=== PATIENT | female | born 1970 | race Hispanic/Latino ===

== ENCOUNTER 2023-01-01 15:28 | Emergency (ER) | payer OTHER ==
[~2023-01-01] VITALS: Ht 154.9 cm; Wt 68.5 kg
[2023-01-01] MEDS ORDERED: SULF1TAB42 PO (16:39)
[2023-01-01] MEDS ORDERED: CEPH500B PO (16:39)
[2023-01-01 17:17] VITALS: BP 120/68; PULSE 70; RESP 16; O2SAT 98
== END 2023-01-01 17:24 | disposition home or self-care (01) ==
LOC: EDH 15:28
DX: T63.301A Toxic effect of unspecified spider venom, accidental (unintentional), initial encounter (principal); L03.115 Cellulitis of right lower limb; E11.9 Type 2 diabetes mellitus without complications; E78.00 Pure hypercholesterolemia, unspecified; I10 Essential (primary) hypertension; Z88.1 Allergy status to other antibiotic agents; Z95.5 Presence of coronary angioplasty implant and graft; Y92.89 Other specified places as the place of occurrence of the external cause

== ENCOUNTER 2024-06-14 10:18 | Emergency (ER) | payer BC, OTHER ==
[~2024-06-14] VITALS: Ht 154.9 cm; Wt 81.6 kg
[~2024-06-14 10:18] MED LIST: CEPH500B PO; SULF1TAB42 PO
--- NOTE | 2024-06-14 10:33 | NUR ---
PT JUST NOW PLACED IN ED BED 9
--- NOTE | 2024-06-14 10:44 | NUR ---
PT JUST COMPLETED A FEW DAYS AGO HER 5 DAY ANTIBIOTIC REGIMEN FOR TREATMENT FOR A UTI
--- NOTE | 2024-06-14 10:55 | EKG ---
[facility] Test Date: 2024-06-14 Test Time: 10:48:33 Pat Name: ZOILA GARCIA Department: ED Room: Gender: F Senior Science Consultant: [id number] : 1970 Requested By: PUJA LEONARD Order Number: [id number] Reading MD: Michel Watson Measurements Intervals [place] Rate: 99 P: 37 VT: 158 QRS: -25 QRSD: 87 T: 0 QT: 342 QTc: 440 Interpretive Statements Sinus rhythm Inferior infarct, old Possible anterior infarct LEFT VENTRICULAR HYPERTROPHY No previous ECG available for comparison Electronically Signed On 06-15-2024 19:17:13 MANUFACTURING MILLWRIGHT by Michel Watson Please click the below link to view image of tracing.
[2024-06-14] MEDS ORDERED: ketOROlac 30MG VIAL (30MG/ML) IM ONE (11:00)
[2024-06-14] MEDS ORDERED: ketOROlac 15MG/ML VIAL (15MG/ML) IM ONE (11:00)
[2024-06-14] MEDS ORDERED: ketOROlac 30MG VIAL (30MG/ML) IVP ONE (11:00)
--- NOTE | 2024-06-14 11:00 | NUR ---
PENDING GFR, IV SITE, & CONSENT FOR CT EXAM.
[2024-06-14] MEDS: ondanSETRON 4MG INJ IVP ONE (11:01)
[2024-06-14] MEDS: 0.9%NACL 1000ML 1,000 ML IV SCH (11:01)
[2024-06-14] MEDS: ketOROlac 15MG/ML VIAL (15MG/ML) IV ONE ×2 (11:01→17:42)
--- NOTE | 2024-06-14 11:02 | ERN ---
ED Note History of Present Illness Stated Complaint: CHEST PAINS, ABDOMINAL PAIN Chief Complaint: Groin Pain Time Seen by MD: 10:46 Allergies: Coded Allergies: levofloxacin (Unverified Allergy, Unknown, 01/01/23) Home Meds Active Scripts Cephalexin Monohydrate (Keflex) 500 Mg Cap, 500 MG PO QID for 7 Days, #28 CAP Prov:ARMIDA SYLVESTER V SHIRA 01/01/23 Sulfamethoxazole/Trimethoprim (Bactrim Ds Tablet) 1 Each Tablet, 1 TAB PO BID for 7 Days, #14 TAB 0 Refills Prov:ARMIDA SYLVESTER V BRIQUETTING MACHINE OPERATOR 01/01/23 Past Medical History Dictation Patient comes in with complaint of right lower quadrant burning and pain as well as dysuria. Pain seems worse with urination and defecation. This has been ongoing for two weeks. Two weeks ago she went to [facility] and had evaluation including CT scan. She was told she had a urinary tract infection and finished course of antibiotics. However she states that pain never went away nor resolved. Comes in for further evaluation. She also has nausea. She is not someone antibiotic she was on. Patient is on Plavix. She has known CAD with four stents. Patient states after evaluating this started as she did look through her paperwork and then she actually does appear to have been admitted for an NSTEMI along with UTI and was in the hospital for two days. No further intervention was done besides medical management. Patient does have history of CAD with stents that was put in September of 2023. No intervention was performed besides medication management. pt on asa and plavix chronically and reports compliance Past Medical History: CAD, Diabetes-Type II, High Cholesterol, Heart Disease, Hypertension, Other Additional Past Medical Hx: CARDIAC STENTS X4 SEPTEMBER 2023 DR MATIAS Surgical History: Hysterectomy, Cholecystectomy, Other Surgical History Other: HERNIA REPAIR Review of System Dictation Ten systems reviewed and negative except as noted in HPI Initial Vital Sign VS Vital Signs Date Time Temp Pulse Resp B/P (MAP) Pulse Ox O2 Delivery O2 Flow Rate FiO2 06/14/24 10:22 102.0 96 20 118/77 96 Room Air 0 06/14/24 10:28 21 Physical Exam Dictation GEN: non toxic, NAD HEENT: atrumatic, PERRL, EOMI, conjunctivae normal NECK: Soft supple nontender Heart RRR, no murmurs Chest: No deformity Lungs: Lungs clear to auscultation Ab: Patient reports a lot of discomfort even with light touch to the right lower quadrant. External exam unremarkable. No dermatomal rash in the back or in the right lower abdomen. Tender to palpation in the lower regions of her abdomen. Back: No midline step-offs. No gross deformity. No CVA tenderness : m/s: Moving all four extremities. No gross deformity Neuro: CN 2-12 intact. Moving all four extremities. Psych: Cooperative Results (Laboratory/Radiology) Laboratory/Radiology Laboratory Tests Test 06/14/24 10:42 06/14/24 11:01 06/14/24 12:21 Urine Color YELLOW (YELLOW) Urine Appearance HAZY (CLEAR) Urine pH 6.0 (5.0-8.0) Urine Specific [place] 1.020 (1.001-1.031) Urine Protein 20 mg/dL (NEGATIVE) H Urine Glucose (UA) NEGATIVE mg/dL (NEGATIVE) Urine Ketones 5 mg/dL (NEGATIVE) H Urine Occult Blood NEGATIVE (NEGATIVE) Urine Nitrate NEGATIVE (NEGATIVE) Urine Bilirubin NEGATIVE mg/dL (NEGATIVE) Urine Urobilinogen 0.2 mg/dL (0.2-1.0) Urine Leukocyte Esterase 25 Hakeem/uL (NEGATIVE) H Urine RBC 0-1 /HPF (0-1) Urine WBC 2-5 /HPF (0-1) H Urine Squamous Epithelial Cells FEW /HPF (0-2) Urine Bacteria RARE /HPF (None Seen) White Blood Count 14.9 K/uL (4.8-10.8) H Red Blood Count 4.38 MIL/uL (4.00-5.50) Hemoglobin 11.8 g/dL (12.0-16.0) L Hematocrit 36.3 % (36-48) Mean Corpuscular Volume 82.9 fL (79-99) Mean Corpuscular Hemoglobin 26.9 pg (27.0-33.0) L Mean Corpuscular Hemoglobin Concent 32.5 g/dL (32.0-36.0) Red Cell Distribution Width 13.5 % (11.0-15.5) Platelet Count 424 K/uL (130-400) H Mean Platelet Volume 10.2 fL (7.5-10.5) Immature Granulocyte % (Auto) 0.6 % (0-1) Neutrophils (%) (Auto) 82.2 % (40.0-77.0) H Lymphocytes (%) (Auto) 7.4 % (21.0-51.0) L Monocytes (%) (Auto) 9.4 % (3.0-13.0) Eosinophils (%) (Auto) 0.1 % (0.0-8.0) Basophils (%) (Auto) 0.3 % (0.0-5.0) Neutrophils # (Auto) 12.3 K/uL (1.8-7.7) H Lymphocytes # (Auto) 1.1 K/uL (1.0-4.8) Monocytes # (Auto) 1.4 K/uL (0.1-1.0) H Eosinophils # (Auto) 0.02 K/uL (0.00-0.70) Basophils # (Auto) 0.04 K/uL (0.00-0.20) Absolute Immature Granulocyte (auto 0.09 K/uL (0-1) Nucleated Red Blood Cells 0.0 % (0.0-0.19) White Cell Morphology Comment See comments Sodium Level 135 mmol/L (136-145) L Potassium Level 3.8 mmol/L (3.5-5.1) Chloride Level 99 mmol/L (101-111) L Carbon Dioxide Level 23 mmol/L (21-32) Blood Urea Nitrogen 11 mg/dL (7-18) Creatinine 0.8 mg/dL (0.5-1.0) Glomerular Filtration Rate Calc 87 mL/min (>90) Random Glucose 170 mg/dL (70-105) H Total Calcium 9.3 mg/dL (8.5-10.1) Total Bilirubin 0.5 mg/dL (0.2-1.0) Aspartate Amino Transf (AST/SGOT) 24 U/L (10-37) Alanine Aminotransferase (ALT/SGPT) 31 U/L (12-78) Alkaline Phosphatase 96 U/L (50-136) Troponin I High Sensitivity 68 ng/L (4-50) *H 61 ng/L (4-50) *H Total Protein 8.8 g/dL (6.0-8.3) H Albumin 2.8 g/dL (3.5-5.0) L Lipase 35 U/L (16-77) PATIENT: ZOILA GARCIA MR#: [id number] : 1970 SEX: F AGE: 54 LOCATION: [facility] ORDER 37 STATUS: REG ER REPORT#: [id number] SERVICE [id number] REASON: ab pain ORDERING PHYSICIAN: PUJA LEONARD MD PROCEDURE: ABD PEL W - CT ABDOMEN/PELVIS W/CONTRAST CT ABDOMEN/PELVIS W/CONTRAST REASON: ab pain COMPARISON: None. TECHNIQUE: Images are obtained from lung bases to symphysis pubis following IV contrast, 75 cc Omnipaque 350. FINDINGS: Lung bases are clear. There are no focal liver lesions. There are normal-appearing kidneys.. Spleen and pancreas appear unremarkable. The gallbladder appears normal as well. There is moderate sigmoid diverticulosis. Distal sigmoid is inflamed and thick-walled consistent with diverticulitis. There is a complex fluid collection adjacent to the sigmoid consistent with abscess, this contains air and fluid, measuring 4.3 x 6.2 cm axial dimension and 5.1 cm superior to inferior. There are several additional smaller fluid collections just superior to this, the largest is 2.2 cm. Bowel loops appear otherwise unremarkable. This includes normal appearance of the appendix There is no evidence of free fluid or intraperitoneal air. Aorta and retroperitoneum appear normal. Uterus is not identified and may be absent. The anterior abdominal wall is intact. Osseous structures appear unremarkable. IMPRESSION: 1. There is diverticulosis of the distal sigmoid, there is marked wall thickening and inflammation consistent with diverticulitis. 2. There are multiple abscesses the pelvis, largest is 6.2 cm, adjacent to the distal sigmoid, consistent with a diverticular abscess, there are several smaller focal fluid collections as well. 3. Otherwise unremarkable exam, no evidence of obstruction, no other focal abnormality. CT was performed with one or more following dose reduction techniques: automated exposure control, adjustment of the mA and kv according to patient's size, or use of a iterative reconstruction technique. DICTATED BY: VALDEMAR GU MD DATE: 06/14/246 ELECTRONICALLY SIGNED BY: VALDEMAR GU MD DATE: 06/14/24 1229 ED Course ED Course Orders Procedure Category Date Status Time Urinalysis Profile LAB 06/14/24 Complete 10:44 Cbc With Differential LAB 06/14/24 Complete 10:44 12 Lead Ekg Tracing- EKG 06/14/24 Complete Technical 10:44 Ketorolac PHA 06/14/24 Complete Tromethamine 30mg/Ml 11:00 Troponin I High LAB 06/14/24 Complete Sensitivity 10:48 Ondansetron 4mg Inj PHA 06/14/24 Complete (Zofran 4mg Inj) 11:00 0.9%Nacl 1000ml (Ns PHA 06/14/24 Complete 1000ml) 11:00 Comprehensive LAB 06/14/24 Complete Metabolic Panel 10:52 Lipase LAB 06/14/24 Complete 10:52 12 Lead Ekg Tracing- EKG 06/14/24 Complete Technical 10:52 Ketorolac PHA 06/14/24 Complete Tromethamine 15mg/Ml 11:00 Troponin I High LAB 06/14/24 Complete Sensitivity 12:01 Ct Abdomen/Pelvis CT 06/14/24 Resulted W/Contrast 11:37 Iohexol (Omnipaque) PHA 06/14/24 Complete 11:42 12 Lead Ekg Tracing- EKG 06/14/24 Logged Technical 12:16 Zosyn 3.375gm+Ns 50ml PHA 06/14/24 Complete (Zosyn 3.375gm+Ns 13:30 Ketorolac PHA 06/14/24 Complete Tromethamine 15mg/Ml 18:00 Morphine 2mg Syg PHA 06/14/24 Complete (Morphine 2mg Syg) 18:30 Current Medications Medications (Trade) Dose Ordered Sig/Crystal Route PRN Reason Start Time Stop Time Status Last Admin Dose Admin Iohexol (Omnipaque) 75 ml STK-MED ONCE IV 06/14/24 11:42 06/14/24 11:42 DC Ketorolac Tromethamine (toRADol) 15 mg ONCE ONCE IM 06/14/24 11:00 06/14/24 10:58 DC Ketorolac Tromethamine (toRADol) 15 mg ONCE ONCE IV 06/14/24 11:00 06/14/24 11:01 DC 06/14/24 11:01 Ketorolac Tromethamine (toRADol) 15 mg ONCE ONCE IV 06/14/24 18:00 06/14/24 18:01 DC 06/14/24 17:42 Ketorolac Tromethamine (toRADol) 30 mg ONCE ONCE IM 06/14/24 11:00 06/14/24 10:55 DC Ketorolac Tromethamine (toRADol) 30 mg ONCE ONCE IVP 06/14/24 11:00 06/14/24 10:58 DC Morphine Sulfate (morPHINE 2MG SYG) 2 mg ONCE ONCE IVP 06/14/24 18:30 06/14/24 18:31 DC 06/14/24 18:16 Ondansetron HCl (zoFRAN 4MG INJ) 4 mg ONCE ONCE IVP 06/14/24 11:00 06/14/24 11:01 DC 06/14/24 11:01 Piperacillin Sod/ Tazobactam Sod (Zosyn 3.375gm+NS 50ml) 3.375 gm ONCE ONCE IV 06/14/24 13:30 06/14/24 13:31 DC 06/14/24 13:13 Sodium Chloride 1,000 ml @ 999 mls/hr Q1H1M IV 06/14/24 11:00 06/14/24 14:08 DC 06/14/24 11:01 Vital Signs Date Time Temp Pulse Resp B/P (MAP) Pulse Ox O2 Delivery O2 Flow Rate FiO2 06/14/24 18:14 99.9 95 20 146/95 97 Room Air* 0 06/14/24 16:24 98.4 82 20 115/72 97 Room Air* 0 06/14/24 15:46 82 24 131/81 97 Room Air* 0 06/14/24 14:14 99.3 87 25 134/84 98 Room Air* 0 06/14/24 13:21 99.7 90 28 137/91 98 Room Air* 0 06/14/24 10:28 102.0 96 20 118/77 96 Room Air* 0 06/14/24 10:22 102.0 96 20 118/77 96 Room Air 0 EKG Sinus rhythm 99 SC 158 QRS of 87 QTC of 440 left axis deviation QRS complexes are narrow. Poor R-wave progression besides prominent R-wave in V2. Q-waves V1 V3 V4. Q-waves also in three and AVF. Nonspecific STT wave flattening. Interpretation abnormal EKG #2 1221 2nd EKG was performed as patient did start complaining of some chest discomfort. Sinus rhythm 91 SC 158 QRS of 96 QTC of thre 464 left axis deviation QRS complexes are narrow. Q-waves V1 V3 V4. Diffuse nonspecific STT wave flattening. Inferior Q's three and AVF. No significant change from previous EKG. We did do troponin x2. 2nd troponin less than 1st. On CT patient has diverticular abscess largest being four x5x6 cm. Cm patient placed on Zosyn. Interventional radiology not available over the weekend. Attempted transfer back to [facility] and heart it and we will patient was recently admitted and discharged. Medical Decision Making MDM Multiple differentials considered. We will do a CT with contrast along with labs. Toradol Zofran fluids. Patient has diverticulitis of the sigmoid colon along with perforation and abscess. No IR capability here currently. Discussed with [facility] Jean. Case was 1st discussed with Dr. Murdock from IR. General surgery Dr. Sanabria also consulted by transfer team. Dr. Story from hosp service accepting. 1840: Patient is accepted at [facility] and awaiting transport. Patient will be due for a 2nd dose of Zosyn in a bit. will give 2nd dose if transport is delayed. pt signed out to Dr. Eli for any unforseen events develop that may change current plan, radhaigh unlikely. DX & DISP Disposition: Transfer Departure Impression: Primary Impression: Colonic diverticular abscess Condition: Stable Referrals: COLIN GONZALES MD (PCP) PUJA LEONARD MD Jun 14, 2024 11:02
[2024-06-14 11:07] LABS: BILIRUBIN,URINE NEGATIVE (NEGATIVE); COLOR,URINE YELLOW (YELLOW); GLUCOSE, URINE (UA) NEGATIVE (NEGATIVE); KETONES,URINE 5 mg/dL (NEGATIVE); LEUKOCYTE ESTERASE ,URINE 25 Leu/uL (NEGATIVE); NITRATE,URINE NEGATIVE (NEGATIVE); OCCULT BLOOD,URINE NEGATIVE (NEGATIVE); PROTEIN,URINE 20 mg/dL (NEGATIVE); UROBILINOGEN,URINE 0.2 mg/dL (0.2-1.0)
[2024-06-14 11:14] LABS: BASOPHILS # (AUTO) 0.04 K/uL (0.00-0.20); BASOPHILS % (AUTO) 0.3 % (0.0-5.0); EOSINOPHILS # (AUTO) 0.02 K/uL (0.00-0.70); EOSINOPHILS % (AUTO) 0.1 % (0.0-8.0); HEMATOCRIT 36.3 % (36-48); IMMATURE GRANULOCYTE ABSOLUTE 0.09 K/uL (0-1); LYMPHOCYTES # (AUTO) 1.1 K/uL (1.0-4.8); LYMPHOCYTES % (AUTO) 7.4 % (21.0-51.0); MEAN CORPUSCULAR HEMOGLOBIN 26.9 pg (27.0-33.0); MEAN CORPUSCULAR HGB CONC 32.5 g/dL (32.0-36.0); MEAN CORPUSCULAR VOLUME 82.9 fL (79-99); MONOCYTES # (AUTO) 1.4 K/uL (0.1-1.0); MONOCYTES % (AUTO) 9.4 % (3.0-13.0); NEUTROPHILS # (AUTO) 12.3 K/uL (1.8-7.7); NEUTROPHILS % (AUTO) 82.2 % (40.0-77.0); PLATELET COUNT (AUTO) 424 K/uL (130-400); RED BLOOD CELL COUNT(AUTO) 4.38 MIL/uL (4.00-5.50); RED CELL DISTRIBUTION WIDTH 13.5 % (11.0-15.5); WHITE BLOOD COUNT (AUTO) 14.9 K/uL (4.8-10.8)
[2024-06-14 11:14] LABS: ADD UA MICROSCOPIC YES; APPEARANCE,URINE HAZY (CLEAR)
[2024-06-14 11:16] LABS: BACTERIA,URINE RARE /HPF (None Seen); MUCUS,URINE RARE LPF (None Seen); RBC,URINE 0-1 /HPF (0-1); SQUAMOUS EPITHELIAL CELL,UR FEW /HPF (0-2)
[2024-06-14 11:18] LABS: CREATININE 0.8 mg/dL (0.5-1.0); POTASSIUM 3.8 mmol/L (3.5-5.1)
[2024-06-14 11:22] LABS: ALBUMIN 2.8 g/dL (3.5-5.0); BILIRUBIN,TOTAL 0.5 mg/dL (0.2-1.0); TOTAL PROTEIN, SERUM 8.8 g/dL (6.0-8.3)
[2024-06-14] MEDS ORDERED: IOHEXOL-350 75 ML VIAL IV ONE (11:42)
--- NOTE | 2024-06-14 11:53 | NUR ---
PT JUST LEFT TO CT SCAN
--- NOTE | 2024-06-14 12:10 | NUR ---
PT RETURNED FROM CT SCAN W/COMPLAINTS OF CHEST PAIN. PT WAS HYPERVENTILATING AND CRYING OUT LOUD. I PROCEEDED TO ENCOURAGE THE PT TO BREATHE IN THROUGH HER NOSE AND SLOW IT DOWN AND REASONS TO WHY EXPLAINED
--- NOTE | 2024-06-14 12:25 | HMCIMG ---
CT ABDOMEN/PELVIS W/CONTRAST REASON: ab pain COMPARISON: None. TECHNIQUE: Images are obtained from lung bases to symphysis pubis following IV contrast, 75 cc Omnipaque 350. FINDINGS: Lung bases are clear. There are no focal liver lesions. There are normal-appearing kidneys.. Spleen and pancreas appear unremarkable. The gallbladder appears normal as well. There is moderate sigmoid diverticulosis. Distal sigmoid is inflamed and thick-walled consistent with diverticulitis. There is a complex fluid collection adjacent to the sigmoid consistent with abscess, this contains air and fluid, measuring 4.3 x 6.2 cm axial dimension and 5.1 cm superior to inferior. There are several additional smaller fluid collections just superior to this, the largest is 2.2 cm. Bowel loops appear otherwise unremarkable. This includes normal appearance of the appendix There is no evidence of free fluid or intraperitoneal air. Aorta and retroperitoneum appear normal. Uterus is not identified and may be absent. The anterior abdominal wall is intact. Osseous structures appear unremarkable. IMPRESSION: 1. There is diverticulosis of the distal sigmoid, there is marked wall thickening and inflammation consistent with diverticulitis. 2. There are multiple abscesses the pelvis, largest is 6.2 cm, adjacent to the distal sigmoid, consistent with a diverticular abscess, there are several smaller focal fluid collections as well. 3. Otherwise unremarkable exam, no evidence of obstruction, no other focal abnormality. CT was performed with one or more following dose reduction techniques: automated exposure control, adjustment of the mA and kv according to patient's size, or use of a iterative reconstruction technique.
--- NOTE | 2024-06-14 12:27 | EKG ---
[facility] Test Date: 2024-06-14 Test Time: 12:21:07 Pat Name: ZOILA GARCIA Department: ED Room: Gender: F Supervisor Phosphatic Fertilizer: [id number] : 1970 Requested By: PUJA LEONARD Order Number: [id number] Reading MD: Michel Watson Measurements Intervals [place] Rate: 91 P: 20 MS: 158 QRS: -24 QRSD: 96 T: -20 QT: 377 QTc: 464 Interpretive Statements Sinus rhythm Left ventricular hypertrophy Inferior infarct, old Mid anterior infarct Probable anterior infarct, age indeterminate Compared to ECG 06/14/2024 10:48:33 Left ventricular hypertrophy now present Myocardial infarct finding still present Electronically Signed On 06-15-2024 19:17:43 SHEET METAL SUPERVISOR by Michel Watson Please click the below link to view image of tracing.
[2024-06-14] MEDS: ZOSYN 3.375GM +NS 50ML IV ONE ×2 (13:13→19:04)
--- NOTE | 2024-06-14 13:19 | NUR ---
REPORT RECEIVED FROM TYREE HAMILTON RN AT THIS TIME.
--- NOTE | 2024-06-14 16:23 | NUR ---
REPORT CALLED TO NURSE MONTENEGRO AT [facility] AT THIS TIME.
--- NOTE | 2024-06-14 18:13 | NUR ---
PATIENT VOICING WORSENING IN PAIN. ER DOC MADE AWARE. ORDERS FOR PAIN MEDICATION TO BE ENTERED BY ED PHYSICIAN.
[2024-06-14] MEDS: morPHINE 2 MG SYG IVP ONE (18:16)
--- NOTE | 2024-06-14 18:18 | NUR ---
[facility] DISPATCH FOR TRANSFER: INITICALLY PLACED ON HOLD FOR 7 MINS AND 45 SECONDS FROM HOSPITAL PHONE. UPON CALLING FROM MY PERSONAL CELL PHONE, CALL ANSWERED IMMEDIATELY AND WAS INFORMED BY JOELLE THERE IS STILL ONE TRANSFER AHEAD OF PT.
[2024-06-14 19:03] VITALS: BP 141/92; PULSE 92; RESP 18; TEMP 98.8; O2SAT 96
== END 2024-06-14 19:05 | disposition short-term general hospital (02) ==
LOC: EDH 10:18
DX: K57.20 Diverticulitis of large intestine with perforation and abscess without bleeding (principal); I25.10 Atherosclerotic heart disease of native coronary artery without angina pectoris; E11.9 Type 2 diabetes mellitus without complications; E78.00 Pure hypercholesterolemia, unspecified; Z88.1 Allergy status to other antibiotic agents; Z90.49 Acquired absence of other specified parts of digestive tract; Z90.710 Acquired absence of both cervix and uterus; Z95.5 Presence of coronary angioplasty implant and graft; Z98.890 Other specified postprocedural states
CPT/HCPCS: 99285; 74177; 96365; 96375; 84484 ×2; 80053; 83690; 85025; 81001; 36415; 96376; 93005 ×2; J1885 ×2; J2270; J2405; J2543; Q9967